=== PATIENT | female | born 1965 | race Caucasian/White ===

== ENCOUNTER 2020-10-13 15:22 | Outpatient (CLI) | payer OTHER, SELFPAY ==
--- NOTE | ~2020-10-13 | XR_ITS ---
XR wrist LT 2V DATE: 10/13/2020 15:43 INDICATION: Radial wrist and first digit pain TECHNIQUE: AP and lateral views COMPARISON: 10/13/2020 left hand FINDINGS: There is widening of the scapholunate joint. There is narrowing and degenerative spurring at the first carpal metacarpal joint consistent with ost eoarthritis. There is a chronic bony ossicle at the lateral aspect of the first carpometacarpal joint . No recent fracture or dislocation. No erosive change is evident. IMPRESSION: Osteophyte is at the first carpometacarpal joint Widening of the scapholunate joint Reviewed, dictated and finalized at location B. 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
--- NOTE | ~2020-10-13 | XR_ITS ---
XR hand LT min 3V DATE: 10/13/2020 15:43 INDICATION: First and fifth metacarpal pain. No injury. TECHNIQUE: 3 views of left hand COMPARISON: None FINDINGS: There is mild widening at the scapholunate joint. There is joint space narrowing and spurri ng at the first carpal metacarpal joint consistent with osteoarthritis. There is a chronic small bony density at the lateral margin of the first carpometacarpal joint. There is mild spurring at the seco nd metacarpal head articular margin consistent with mild osteoarthritis at the second metacarpophalan geal joint. There is narrowing of some of the interphalangeal joints. No fracture or dislocation, periosteal reaction or bone destruction is detected. IMPRESSION: Polyarticular osteoarthritis Widening at the scapholunate joint No fracture or dislocation Reviewed, dictated and finalized at location B. 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
== END 2020-10-13 15:23 | disposition home or self-care (01) ==
LOC: ANHIMG 15:29
PROVIDERS: PCP Nurse Practitioner Family; Visit Provider Nurse Practitioner Family
DX: M19.042 Primary osteoarthritis, left hand (principal); M18.12 Unilateral primary osteoarthritis of first carpometacarpal joint, left hand
CPT/HCPCS: 73100; 73130

== ENCOUNTER 2021-03-22 14:49 | Outpatient (CLI) | payer OTHER, SELFPAY ==
--- NOTE | ~2021-03-22 | MM_ITS ---
EXAMINATION: MM screening [facility] BI w rena HISTORY: Screening mammogram TECHNIQUE: Craniocaudal and mediolateral oblique 3-D tomosynthesis images were obtained and synthetic 2-D images were generated. CAD analysis was submitted and interpreted. COMPARISON: 11/18/2019, 09/03/2018, 08/06/2009 bilateral digital screening mammogram examinations BREAST PARENCHYMAL COMPOSITION: The breasts are almost entirely fatty. FINDINGS: There is no evidence of suspicious mass, calcification, or architectural distortion to sugg est malignancy in either breast. There has been no suspicious interval change. IMPRESSION: 1. No mammographic evidence of malignancy. 2. Recommend routine screening mammography in one year. BI-RADS Category 1: Negative Reviewed, dictated and finalized at location A.
--- NOTE | ~2021-03-22 | DEXA_ITS ---
Bone Density Report Name: Eve Lunsford Age: 55 Sex: Female Ethnicity: White Date of : 1965 Indication: asthma or emphysema; Referring Provider: ADELE, MUNA Study: Bone densitometry was performed. Exam Date: March 22, 2021 Accession number: [id number] Bone Density: Region BMD T-score Z-score Classification AP Spine (L3, L4) 1.209 1.0 2.0 Normal Femoral Neck (Left) 0.631 -2.0 -1.0 Osteopenia Total Hip (Left) 0.759 -1.5 -0.9 Osteopenia Total Hip Bilateral Avg 0.811 -1.1 -0.5 Osteopenia Femoral Neck (Right) 0.759 -0.8 0.1 Normal Total Hip (Right) 0.862 -0.7 -0.1 Normal World Health Organization criteria for BMD impression classify patients as: Normal (T-score at or above -1.0), Osteopenia (T-score between -1.0 and -2.5), or Osteoporosis (T-score at or below -2.5). 10-year Fracture Risk: FRAX not reported because: Premenopausal woman Clinical Information Provided by Patient: Has used the following medications: Vitamin D Has the following medical conditions: Asthma or Emphysema Patient maximum height was 64 Drinks caffeinated beverages Onset of menses at age 12 Premenopausal Number of children 2 Impression: The patient's bone mass is within expected range for age, gender and ethnicity. Discussion: BONE DENSITY IS WITHIN EXPECTED LIMITS FOR AGE, SEX AND RACE. Bone density is within expected limits for age, sex and race at all sites measured. The patient should follow a healthful lifestyle (good nutrition with adequate calcium and vitamin D, and appropriate weight-bearing exercise). Follow-Up: Consider repeating this study in 2 to 3 years to reassess this patient's status, or sooner if there is some new clinical indication. Reported by: EDMUND on 03/22/2021 3:12:00 PM. Reviewed, dictated and finalized at location AEvon LANDIN
== END 2021-03-22 14:50 | disposition home or self-care (01) ==
PROVIDERS: PCP Nurse Practitioner Family; Visit Provider Nurse Practitioner
DX: Z12.31 Encounter for screening mammogram for malignant neoplasm of breast (principal); Z13.820 Encounter for screening for osteoporosis; M85.852 Other specified disorders of bone density and structure, left thigh; M85.851 Other specified disorders of bone density and structure, right thigh
CPT/HCPCS: 77063; 77067; 77080

== ENCOUNTER 2022-06-28 08:00 | Outpatient (CLI) | payer OTHER, SELFPAY ==
--- NOTE | ~2022-06-28 | MM_ITS ---
EXAMINATION: MM screening [facility] BI w rena HISTORY: Screening TECHNIQUE: Craniocaudal and mediolateral oblique 3-D tomosynthesis images were obtained and synthetic 2-D images were generated. CAD analysis was submitted and interpreted. COMPARISON: Comparison to multiple prior studies sequentially, with oldest reviewed study dated 06/2018. BREAST PARENCHYMAL COMPOSITION: There are scattered areas of fibroglandular density. FINDINGS: There is no evidence of suspicious mass, calcification, or architectural distortion to sugg est malignancy in either breast. There has been no suspicious interval change. IMPRESSION: 1. No mammographic evidence of malignancy. 2. Recommend routine screening mammography in one year. BI-RADS Category 1: Negative Reviewed, dictated and finalized at location A.
== END 2022-06-28 08:01 | disposition home or self-care (01) ==
PROVIDERS: PCP Nurse Practitioner Family; Visit Provider Obstetrics & Gynecology Gynecology
DX: Z12.31 Encounter for screening mammogram for malignant neoplasm of breast (principal)
CPT/HCPCS: 77063; 77067

== ENCOUNTER 2022-07-22 15:38 | Emergency (ER) | payer OTHER, SELFPAY ==
[2022-07-22 15:47] VITALS: BP 156/93; PULSE 85; RESP 16; TEMP 36.6; O2SAT 99
--- NOTE | 2022-07-22 16:01 | ED.SKABFB ---
HPI - Skin/Abscess/Foreign Bdy General Chief complaint: Skin/Abscess/Foreign Body Stated complaint: cyst inner breast Time Seen by Provider: 07/22/22 16:02 History of Present Illness HPI narrative: Eve Lunsford is a 56 yo female with no PMH who comes to the area of inflamed tissue under her left breast that she has been tried use hot compresses on and helping it improved for the last week states has been excised once in the past with absolutely came to the services abscess but has not bothered her for 5 years Related Data Home Medications Medication Instructions Recorded Confirmed loratadine 10 mg tablet mg 07/22/22 meloxicam 15 mg tablet mg 07/22/22 Allergies Allergy/AdvReac Type Severity Reaction Status Date / Time No Known Allergies Allergy Unverified 05/28/14 17:25 Review of Systems Review of Systems: CONSTITUTIONAL: Denies fever, chills, sweats. EYES: Denies visual changes, redness, discharge. ENT: Denies rhinorrhea, congestion, sore throat, otalgia. CARDIOVASCULAR: Denies chest pain, palpitations, edema. RESPIRATORY: Denies dyspnea, wheezing, cough GASTROINTESTINAL: Denies abdominal pain, nausea, vomiting, diarrhea. GENITOURINARY: Denies dysuria, hematuria, abnormal discharge SKIN: Swollen area under the left breast NEUROLOGIC: Denies numbness, or focal weakness. PSYCHIATRIC: Denies anxiety or depression. [facility] Past Medical History Medical History (Updated 07/22/22 @ 16:17 by Yoon Guo CNP) Cyst of left breast High blood pressure Social History Social History (Updated 07/22/22 @ 16:12 by Yoon Guo CNP) Smoking packs per day: 1 Smoking cigarettes per day: 20.0 Smoking status: Current every day smoker Alcohol intake: current Comments At time of signature, I agree with nursing past medical, surgical, social and family history. There is no relevant family history pertinent to the presenting complaint. Exam Narrative: GENERAL: This is a well-nourished, well-developed patient, in mild distress. HEAD: normocephalic, atraumatic. EYES: Sclera clear/white. Vision is grossly intact. EARS: External ears normal, . Hearing grossly intact. NOSE: External nose normal without nasal discharge, nares without redness, no rhinorrhea. THROAT: Mucous membranes moist, CARDIOVASCULAR: Regular rate and rhythm without murmurs, gallops, or rubs. RESPIRATORY: Clear to auscultation. Breath sounds equal bilaterally. No wheezes, rales, or rhonchi. GASTROINTESTINAL: Abdomen soft, non-tender, SKIN: warm, intact with swelling under the left breast running laterally that is warm to touch and firm NEURO: awake, alert, and oriented to person, place and time. There were no obvious focal neurologic abnormalities. Steady gait EXTREMITIES: Normal range of motion. BACK: Nontender without deformity Course Course Emergency Course: Patient has i cellulitis under left breast Started on Keflex 875 twice daily to continue using warm soaks Level of Care: Express Care Visit Vital Signs Vital signs: Vital Signs Temperature 97.9 F 07/22/22 15:47 Pulse Rate 85 07/22/22 15:47 Respiratory Rate 16 07/22/22 15:47 Blood Pressure 156/93 H 07/22/22 15:47 Pulse Oximetry 99 07/22/22 15:47 Oxygen Delivery Room Air 07/22/22 15:47 Temperature 97.9 F 07/22/22 15:47 Pulse Rate 85 07/22/22 15:47 Respiratory Rate 16 07/22/22 15:47 Blood Pressure 156/93 H 07/22/22 15:47 Pulse Oximetry 99 07/22/22 15:47 Oxygen Delivery Room Air 07/22/22 15:47 MDM - Skin/Abscess/Foreign Bdy Differential Diagnosis Differential diagnosis: Likely abscess of skin or subcutaneous tissue, cellulitis and other Critical Care Time Critical Care Time Critical Care Time: No Discharge Plan Discharge Clinical Impression: Cellulitis Patient Disposition: Home, Self-Care Condition: Stable Instructions: Antibiotic Form, Cellulitis (ED) Additional Instructions: Take antibiotics as di
== END 2022-07-22 16:23 | disposition home or self-care (01) ==
PROVIDERS: Emergency Provider Nurse Practitioner
DX: N61.0 Mastitis without abscess (principal); F17.210 Nicotine dependence, cigarettes, uncomplicated; I10 Essential (primary) hypertension
CPT/HCPCS: 99213; G0463

== ENCOUNTER 2022-07-27 18:42 | Emergency (ER) | payer OTHER, SELFPAY ==
[2022-07-27 18:46] VITALS: BP 190/99; PULSE 102; RESP 20; TEMP 36.4; O2SAT 97
--- NOTE | 2022-07-27 19:39 | ED.GENADULT ---
HPI - General Adult General Chief complaint: Wound/Laceration Stated complaint: abscess on left breast Time Seen by Provider: 07/27/22 19:34 History of Present Illness HPI narrative: Patient is a 56-year-old female who presents ER with left breast abscess. Started having pain over a week ago. Went to [place] [facility] and was placed on cephalexin. Saw her PCP yesterday and was switched to Bactrim. She has developed an abscess head on it today. No drainage. No fevers or chills or sweats. Had similar symptoms 1 time several years ago related to a cyst in her breast. Patient reports she had a mammogram on 06/28/2022 that came back normal. It is possible this may have irritated the cyst and then it got secondarily infected. Patient's nipple is currently inverted and she reports this is related to the inflammation. Related Data Home Medications Medication Instructions Recorded Confirmed loratadine 10 mg tablet mg 07/22/22 meloxicam 15 mg tablet mg 07/22/22 Allergies Allergy/AdvReac Type Severity Reaction Status Date / Time No Known Allergies Allergy Unverified 05/28/14 17:25 Review of Systems Review of Systems: All systems reviewed & are unremarkable except as noted in HPI and below Constitutional: Constitutional: Denies chills, Denies fatigue and Denies fever(s) Cardiovascular: Cardiovascular: Denies chest pain Respiratory: Respiratory: Denies cough and Denies dyspnea Integumentary/Breasts: Skin/Breast: Reports breast pain and Reports erythema Comments: Abscess left breast PMFSH Past Medical History Medical History (Updated 07/27/22 @ 20:25 by Herson Lorenzana MD) Cyst of left breast High blood pressure Social History Social History (Updated 07/22/22 @ 16:12 by Yoon Guo CNP) Smoking packs per day: 1 Smoking cigarettes per day: 20.0 Smoking status: Current every day smoker Alcohol intake: current Exam Narrative: GENERAL: Well-appearing, well-nourished, and in no acute distress. HEAD: Normocephalic, atraumatic. Breast: Left breast with abscess at the 5 o'clock position by the nipple. Some induration inferiorly and medially. Inverted nipple on left side. Normal right breast. EXTREMITIES: Normal range of motion. No edema. SKIN: Warm, dry, no rash. NEURO: Alert and oriented x3. PSYCH: Normal mood and affect. Course Vital Signs Vital signs: Vital Signs Temperature 97.6 F 07/27/22 18:46 Pulse Rate 102 H 07/27/22 18:46 Respiratory Rate 20 07/27/22 18:46 Blood Pressure 190/99 H 07/27/22 18:46 Pulse Oximetry 97 07/27/22 18:46 Oxygen Delivery Room Air 07/27/22 18:46 Temperature 97.6 F 07/27/22 18:46 Pulse Rate 102 H 07/27/22 18:46 Respiratory Rate 20 07/27/22 18:46 Blood Pressure 190/99 H 07/27/22 18:46 Pulse Oximetry 97 07/27/22 18:46 Oxygen Delivery Room Air 07/27/22 18:46 Procedures Abscess I/D breast: Date of Incision: 07/27/22 Time of Incision: 20:15 Side (if applicable): left Local Anesthetic: lidocaine 1% and with epi Amount of anesthesia used (mL): 3 Technique: incised with #11 blade Irrigation: No Packing used?: plain I&D Results: Pus Medical Decision Making Vital Signs Vital Signs: Vital Signs Temperature 97.6 F 07/27/22 18:46 Pulse Rate 102 H 07/27/22 18:46 Respiratory Rate 20 07/27/22 18:46 Blood Pressure 190/99 H 07/27/22 18:46 Pulse Oximetry 97 07/27/22 18:46 Oxygen Delivery Room Air 07/27/22 18:46 Temperature 97.6 F 07/27/22 18:46 Pulse Rate 102 H 07/27/22 18:46 Respiratory Rate 20 07/27/22 18:46 Blood Pressure 190/99 H 07/27/22 18:46 Pulse Oximetry 97 07/27/22 18:46 Oxygen Delivery Room Air 07/27/22 18:46 Discharge Plan Discharge Clinical Impression: Abscess Patient Disposition: Home, Self-Care Condition: Stable Instructions: Antibiotic Form, Incision and Drainage (ED) Additional
== END 2022-07-27 20:45 | disposition home or self-care (01) ==
LOC: ANHED 20:45
PROVIDERS: Emergency Provider Emergency Medicine; PCP Nurse Practitioner Family
DX: N61.1 Abscess of the breast and nipple (principal); I10 Essential (primary) hypertension; F17.210 Nicotine dependence, cigarettes, uncomplicated
CPT/HCPCS: 10061; 99283

== ENCOUNTER 2022-08-30 16:36 | Outpatient (CLI) | payer OTHER, SELFPAY ==
--- NOTE | ~2022-08-30 | US_ITS ---
EXAMINATION: US breast LT limited HISTORY: Abscess of the breast and nipple TECHNIQUE: Limited left breast ultrasound is performed in the area of clinical concern. FINDINGS: There is a small amount of edema in the breast near the nipple. No suspicious cystic or destini id mass is seen. No abscess is identified. IMPRESSION: Soft tissue edema without discrete abscess identified. BI-RADS Category 2: Benign finding(s). Reviewed, dictated and finalized at location A.
== END 2022-08-30 16:37 | disposition home or self-care (01) ==
LOC: ANHIMG 16:39
PROVIDERS: PCP Nurse Practitioner Family; Visit Provider Surgery
DX: N61.1 Abscess of the breast and nipple (principal)
CPT/HCPCS: 76642

== ENCOUNTER 2022-11-14 16:00 | Emergency (ER) | payer OTHER, SELFPAY ==
[2022-11-14 16:35] VITALS: BP 167/101; PULSE 106; RESP 16; TEMP 37.2; O2SAT 98
--- NOTE | 2022-11-14 17:13 | ED.SKABFB ---
HPI - Skin/Abscess/Foreign Bdy General Chief complaint: Skin/Abscess/Foreign Body Stated complaint: Bottom Lip Swollen Source: patient Mode of arrival: ambulatory Limitations: no limitations History of Present Illness HPI narrative: 57-year-old female presents to [facility] with complaints of pain, erythema and swelling to her lower lip for the past 2 days. Patient reports that she felt that she had a zit coming on so she attempted to pop it using a tweezers. Patient reports that her symptoms have worsened. Patient denies fever, purulent drainage, bleeding, nausea, vomiting or diarrhea. Patient has been applying [id number] ointments with little relief. MD complaint: other (erythema, swelling ) Onset (ago): day(s) (2) Exacerbating factors: none Associated symptoms: denies other symptoms Treatments prior to arrival: none Related Data Home Medications Medication Instructions Recorded Confirmed gabapentin 300 mg capsule 300 mg PO DAILY 11/14/22 11/14/22 Allergies Allergy/AdvReac Type Severity Reaction Status Date / Time No Known Allergies Allergy Verified 11/14/22 16:46 Review of Systems Constitutional: Constitutional: Denies chills, Denies fatigue, Denies fever(s) and Denies weakness ENT: Denies vertigo and Denies dizziness Cardiovascular: Cardiovascular: Denies chest pain Respiratory: Respiratory: Denies cough, Denies dyspnea and Denies wheezing Gastrointestinal: Gastrointestinal: Denies diarrhea, Denies nausea and Denies vomiting Musculoskeletal: Musculoskeletal: Denies arthralgias and Denies joint swelling Integumentary/Breasts: Skin/Breast: Denies pruritus, Reports erythema and Reports rash Comments: Erythema, swelling and warmth to lower lip Allergic/Immunologic: Allergic/Immunologic: Denies lip swelling, Denies throat swelling and Denies tongue swelling [facility] Past Medical History Medical History Cyst of left breast High blood pressure Social History Social History Smoking packs per day: 1 Smoking cigarettes per day: 20.0 Smoking status: Current every day smoker Alcohol intake: current Comments At time of signature, I agree with nursing past medical, surgical, social and family history. There is no relevant family history pertinent to the presenting complaint. Exam Const: General: healthy appearing, no acute distress and alert Nutritional Appearance: well nourished Orientation/consciousness: patient oriented x3 Limitations: no limitations HENMT: Head: normal to inspection Throat: posterior oropharynx normal and uvula midline Eyes: Conjunctivae: conjunctivae normal Neck: Neck: normal visual inspection Resp: Effort & Inspection: normal respiratory effort and not labored Auscultation: clear to auscultation bilaterally, no crackles, no rales, no rhonchi and no wheezes Cardio: Rate: regular rate Rhythm: regular rhythm Heart sounds: Murmur heart sound present Other: patient has known history of murmur Skin: General skin exam: normal color Other: mild erythema, swelling and warmth noted to the lower lip. There is a 1 cm scabbed area noted to lower Lip. There is no fluctuance or induration noted Neuro: General: patient oriented x3 Speech: normal speech Gait exam (Neuro): Normal gait present Psych: Affect: normal affect Attitude: cooperative Course Course Level of Care: Express Care Visit Vital Signs Vital signs: Vital Signs Temperature 37.2 C 11/14/22 16:35 Pulse Rate 106 H 11/14/22 16:35 Respiratory Rate 16 11/14/22 16:35 Blood Pressure 167/101 H 11/14/22 16:35 Pulse Oximetry 98 11/14/22 16:35 Oxygen Delivery Room Air 11/14/22 16:35 Temperature 37.2 C 11/14/22 16:35 Pulse Rate 106 H 11/14/22 16:35 Respiratory Rate 16 11/14/22 16:35 Blood Pressure 167/101 H 11/14/22 16:35 Pulse Oximetry 98 11/14/22
[2022-11-14 17:23] VITALS: BP 138/82
== END 2022-11-14 17:23 | disposition home or self-care (01) ==
PROVIDERS: Emergency Provider Nurse Practitioner Family; PCP Nurse Practitioner Family
DX: K13.0 Diseases of lips (principal); R03.0 Elevated blood-pressure reading, without diagnosis of hypertension
CPT/HCPCS: 99213; G0463

== ENCOUNTER 2023-07-03 08:03 | Emergency (ER) | payer OTHER, SELFPAY ==
[2023-07-03 08:13] VITALS: BP 127/80; PULSE 91; RESP 16; TEMP 37.1; O2SAT 100
[2023-07-03 08:15] VITALS: BP 127/80; PULSE 91; RESP 16; TEMP 37.1; O2SAT 100
--- NOTE | 2023-07-03 08:18 | ED.SKABFB ---
HPI - Skin/Abscess/Foreign Bdy General Chief complaint: Skin/Abscess/Foreign Body Stated complaint: Right Armpit Pain Time Seen by Provider: 07/03/23 08:24 Source: patient and RN notes reviewed Mode of arrival: ambulatory Limitations: dementia History of Present Illness HPI narrative: 57-year-old female presents with concern for redness, drainage under her right arm. She reports on Monday she began feeling poorly, she had fever, body aches, fatigue. She reports she noticed the redness and swelling increasing under her armpit over the weekend, it started draining yesterday. She reports she last had a fever yesterday morning. She reports the area remains red and slightly tender. MD complaint: other (Redness) Related Data Home Medications Medication Instructions Recorded Confirmed gabapentin 300 mg capsule 300 mg PO DAILY 11/14/22 07/03/23 hydrochlorothiazide 25 mg tablet 25 mg PO DAILY 07/03/23 07/03/23 meloxicam 15 mg tablet 15 mg PO DAILY 07/03/23 07/03/23 Allergies Allergy/AdvReac Type Severity Reaction Status Date / Time No Known Allergies Allergy Verified 07/03/23 08:13 Review of Systems Review of Systems: CONSTITUTIONAL: Denies malaise, chills, sweats, or fever. EYES: Denies redness, or discharge. ENT: Denies rhinorrhea, congestion, swollen lips, swollen tongue CARDIOVASCULAR: Denies chest pain, palpitations, or edema. RESPIRATORY: Denies cough or dyspnea. GASTROINTESTINAL: Denies abdominal pain, nausea, vomiting SKIN: Reports redness, swelling, drainage under her right arm. Denies vesicles, bullae, numbness, pain beyond proportion MUSCULOSKELETAL: Denies joint pain or myalgia. NEUROLOGIC: Denies headache. All systems reviewed & are unremarkable except as noted in HPI and below PMFSH Past Medical History Medical History Cyst of left breast High blood pressure Social History Social History Smoking packs per day: 1 Smoking cigarettes per day: 20.0 Smoking status: Current every day smoker Alcohol intake: current Comments At time of signature, agree with nursing past medical, surgical, social and family history. There is no relevant family history pertinent to the presenting complaint Exam Narrative: GENERAL: Well-appearing, well-nourished, and in no acute distress. HEAD: Normocephalic, atraumatic. EYES: PERRLA, conjunctivae clear ENT: Mucous membranes moist. NECK: Supple. No lymphadenopathy CHEST: Clear to auscultation. No respiratory distress. HEART: Regular rate and rhythm. SKIN: Warm, dry. Erythema, induration, tenderness, warmth without fluctuation with sharp margins approximately 8 cm x 10 cm noted in the right axilla with small scabbed area noted. No vesicles, bullae, necrosis, ecchymosis, crepitus noted. NEURO: Alert and oriented x3. PSYCH: Normal mood and affect Course Course Emergency Course: Patient is aware of diagnosis, understands and agrees to treatment plan. Anticipatory guidance given. Patient agrees to follow-up as directed and is aware of reasons to seek care at the emergency department. Portions of this record may have been created with voice recognition software Level of Care: Express Care Visit Vital Signs Vital signs: Vital Signs Temperature 98.8 F 07/03/23 08:13 Pulse Rate 91 07/03/23 08:13 Respiratory Rate 16 07/03/23 08:13 Blood Pressure 127/80 07/03/23 08:13 Pulse Oximetry 100 07/03/23 08:13 Oxygen Delivery Room Air 07/03/23 08:13 Temperature 98.8 F 07/03/23 08:15 Pulse Rate 91 07/03/23 08:15 Respiratory Rate 16 07/03/23 08:15 Blood Pressure 127/80 07/03/23 08:15 Pulse Oximetry 100 07/03/23 08:15 Oxygen Delivery Room Air 07/03/23 08:15 Reviewed. MDM - Skin/Abscess/Foreign Bdy MDM Narrative Medical decision making narrative: Does not appear at this time to be erythema multiforme, bull
== END 2023-07-03 08:43 | disposition home or self-care (01) ==
PROVIDERS: Emergency Provider Nurse Practitioner; PCP Nurse Practitioner Family
DX: L03.111 Cellulitis of right axilla (principal); L02.411 Cutaneous abscess of right axilla; I10 Essential (primary) hypertension; F17.210 Nicotine dependence, cigarettes, uncomplicated
CPT/HCPCS: 99213; G0463

== ENCOUNTER 2023-11-03 15:41 | Emergency (ER) | payer OTHER, SELFPAY ==
[2023-11-03 15:48] VITALS: BP 152/109; PULSE 96; RESP 18; TEMP 35.8; O2SAT 97
--- NOTE | 2023-11-03 16:11 | ED.WOUNDLAC ---
HPI - Wound/Laceration General Chief Complaint: Wound/Laceration Stated Complaint: Wound on Abdomen Time Seen by Provider: 11/03/23 16:05 Source: patient and RN notes reviewed Mode of arrival: ambulatory Limitations: no limitations History of Present Illness HPI narrative: Patient presents today complaining of a wound to her right lower abdomen with surrounding redness. States she was initially scratched by a dog 10-14 days ago over her clothing that caused an open wound. A few days later it started to become red with some drainage and has slowly progressed since that time. She had scrub the area with a pumice stone and had been cleaning with witch Tia. Denies any current pain. Related Data Home Medications Medication Instructions Recorded Confirmed hydrochlorothiazide 25 mg tablet 25 mg PO DAILY 07/03/23 11/03/23 meloxicam 15 mg tablet 15 mg PO DAILY 07/03/23 11/03/23 cholecalciferol (vitamin D3) 1,250 1,250 mcg PO WEEKLY 11/03/23 11/03/23 mcg (50,000 unit) tablet loratadine 10 mg tablet mg 11/03/23 Allergies Allergy/AdvReac Type Severity Reaction Status Date / Time No Known Allergies Allergy Verified 11/03/23 15:50 Review of Systems Review of Systems: CONSTITUTIONAL: Denies body aches, fever, chills, or sweats. EYES: Denies visual changes, redness, or discharge. ENT: Denies rhinorrhea, congestion, sore throat, or otalgia. CARDIOVASCULAR: Denies chest pain, palpitations, or edema. RESPIRATORY: Denies cough or dyspnea. GASTROINTESTINAL: Denies abdominal pain, nausea, vomiting, or diarrhea. GENITOURINARY: Denies dysuria or hematuria. SKIN: + wound to right lower abdomen MUSCULOSKELETAL: Denies back pain, joint pain, or myalgia. NEUROLOGIC: Denies headache, numbness, tingling, or weakness. PSYCH: Denies depression or anxiety. [facility] Past Medical History Medical History Cyst of left breast High blood pressure Social History Social History Smoking packs per day: 1 Smoking cigarettes per day: 20.0 Smoking status: Current every day smoker Alcohol intake: current Comments At time of signature, I have reviewed and agree with nursing past medical, surgical, social and family history unless otherwise noted. Please see nursing chart for further information. There is no relevant family history pertinent to the presenting complaint Exam Narrative: GENERAL: Well-appearing, well-nourished, and in no acute distress. HEAD: Normocephalic, atraumatic. EYES: EOMI. No redness or drainage. Conjunctivae normal. ENT: Mucous membranes pink and moist. NECK: Normal AROM. CHEST: No respiratory distress. MUSCULOSKELETAL: No bony tenderness. EXTREMITIES: Normal range of motion. No edema. SKIN: Warm, dry, no rash. Capillary refill normal. Normal skin turgor. Superficial open wound with an erythematous base measuring approximately 3 x 4 cm with some scant purulent discharge, surrounded in erythema measuring 11 x 21 cm. No induration. NEURO: No focal deficits. Alert and oriented x3. Gait steady. PSYCH: Normal affect. No signs of depression or anxiety. Course Course Level of Care: Express Care Visit Vital Signs Vital signs: Vital Signs Temperature 96.5 F L 11/03/23 15:48 Pulse Rate 96 11/03/23 15:48 Respiratory Rate 18 11/03/23 15:48 Blood Pressure 152/109 H 11/03/23 15:48 Pulse Oximetry 97 11/03/23 15:48 Oxygen Delivery Room Air 11/03/23 15:48 Temperature 96.5 F L 11/03/23 15:48 Pulse Rate 96 11/03/23 15:48 Respiratory Rate 18 11/03/23 15:48 Blood Pressure 152/109 H 11/03/23 15:48 Pulse Oximetry 97 11/03/23 15:48 Oxygen Delivery Room Air 11/03/23 15:48 Reviewed MDM - Wound/Laceration MDM Narrative Medical decision making narrative: Patient will be treated with a course of Bactrim for her cellulitis. She has been instruc
[2023-11-03 16:15] VITALS: BP 117/80; PULSE 86
== END 2023-11-03 16:21 | disposition home or self-care (01) ==
PROVIDERS: Emergency Provider Nurse Practitioner; PCP Nurse Practitioner Family
DX: L03.311 Cellulitis of abdominal wall (principal); F17.210 Nicotine dependence, cigarettes, uncomplicated; Z79.899 Other long term (current) drug therapy
CPT/HCPCS: 99213; G0463

== ENCOUNTER 2023-12-16 08:43 | Outpatient (CLI) | payer OTHER, SELFPAY ==
--- NOTE | ~2023-12-16 | DEXA_ITS ---
Bone Density Report Name: LINN KEE Age: 58 Sex: Female Ethnicity: White Date of : 1965 Indication: osteopenia; height loss;postmenopausal Referring Provider: FERNANDO BOWLING Study: Bone densitometry was performed. Exam Date: December 16, 2023 Accession number: [id number] Bone Density: Region BMD T-score Z-score Classification AP Spine(L2, L3, L4) 1.187 1.0 2.1 Normal Femoral Neck (Left) 0.737 -1.0 0.1 Normal Total Hip (Left) 0.798 -1.2 -0.4 Osteopenia Femoral Neck (Right) 0.710 -1.3 -0.1 Osteopenia Total Hip (Right) 0.777 -1.4 -0.6 Osteopenia Total Hip Mean 0.788 -1.3 -0.5 Osteopenia World Health Organization criteria for BMD impression classify patients as: Normal (T-score at or above -1.0), Osteopenia (T-score between -1.0 and -2.5), or Osteoporosis (T-score at or below -2.5). 10-year Fracture Risk(1): Major Osteoporotic Fracture 5.4% Hip Fracture 0.5% Reported Risk Factors: [place] (), Neck BMD=0.710, BMI=44.3, smoking (1) FRAX(R) Version 3.08. Fracture probability calculated for an untreated patient. Fracture probability may be lower if the patient has received treatment. Previous Exams: Region Exam Age BMD T-score BMD Change BMD Change Date g/cm2 vs Baseline vs Previous Total Hip(Left) 12/16/2023 58 0.798 -1.2 0.040 (5.2%)# 0.040 (5.2%)# 03/22/2021 55 0.759 -1.5 Total Hip(Right) 12/16/2023 58 0.777 -1.4 -0.085 (-9.8%) -0.085 (-9.8%) 03/22/2021 55 0.862 -0.7 *Denotes significance at 95% confidence level, LSC for Total Hip = 0.027 g/cm2 # Denotes dissimilar scan types or analysis methods Clinical Information Provided by Patient: Smokes Has used the following medications: Vitamin D Patient maximum height was 64.5 Drinks caffeinated beverages Onset of menses at age 12 Number of children 2 Impression: The patient has low bone mass, based on the Right Total Hip T-score. The patient has an estimated ten-year risk of hip fracture of 0.5% and an estimated ten-year risk of major fracture of 5.4%, based on the WHO FRAX algorithm. The patient has risk factors, including: smoking. No significant bone loss was observed. Discussion: BONE DENSITY IS LOW AT ONE OR MORE SKELETAL SITES. This patient's lowest T-score is low at one or more skeletal sites. It meets the World Health Organization's (WHO) criteria for ?low bone mass? (T-score between -1.0 and -2.5). The patient's 10-year risk of fracture as calculated by FRAX is les
--- NOTE | ~2023-12-16 | MM_ITS ---
EXAMINATION: MM screening josselyn BI w rena HISTORY: Screening mammogram TECHNIQUE: Craniocaudal and mediolateral oblique 3-D tomosynthesis images were obtained and synthetic 2-D images were generated. CAD analysis was submitted and interpreted. COMPARISON: 08/2022 Limited left breast ultrasound 06/28/2022, 03/22/2021 and 11/18/2019 bilateral screening mammogram examinations BREAST PARENCHYMAL COMPOSITION: The breasts are almost entirely fatty. FINDINGS: Stable circumscribed approximately 8.5 mm opacity in the posterior outer mid to lower right breast since 06/28/2022 and 11/18/2019. There is no evidence of suspicious mass, calcification, or arc hitectural distortion to suggest malignancy in either breast. There has been no suspicious interval c hange. IMPRESSION: 1. Benign finding. No mammographic evidence of malignancy. 2. Recommend routine screening mammography in one year. BI-RADS Category 2: Benign finding(s). Reviewed, dictated and finalized at location A. [employer]
== END 2023-12-16 08:44 | disposition home or self-care (01) ==
LOC: ANHIMG 08:45
PROVIDERS: PCP Nurse Practitioner Family; Visit Provider Obstetrics & Gynecology Gynecology
DX: Z12.31 Encounter for screening mammogram for malignant neoplasm of breast (principal); M85.80 Other specified disorders of bone density and structure, unspecified site; Z78.0 Asymptomatic menopausal state
CPT/HCPCS: 77063; 77067; 77080

== ENCOUNTER 2024-02-24 15:59 | Emergency (ER) | payer OTHER, SELFPAY ==
[2024-02-24 16:15] VITALS: BP 147/107; PULSE 92; RESP 18; TEMP 36.2; O2SAT 97
--- NOTE | 2024-02-24 16:22 | ED.WOUNDLAC ---
HPI - Wound/Laceration General Chief Complaint: Wound/Laceration Stated Complaint: Right Leg Wound Source: patient Mode of arrival: ambulatory Limitations: no limitations History of Present Illness HPI narrative: 58-year-old female presented for complaint of right leg laceration sustained today. She states she tripped in her yard and may have cut the leg on a vine. Noticed blood down the leg. Applied a paper towel to the site to stop the bleeding. Tetanus updated 2021. Denies significant pain, numbness, tingling or weakness. Related Data Home Medications Medication Instructions Recorded Confirmed hydrochlorothiazide 25 mg tablet 25 mg PO DAILY 07/03/23 02/24/24 meloxicam 15 mg tablet 15 mg PO DAILY 07/03/23 02/24/24 cholecalciferol (vitamin D3) 1,250 1,250 mcg PO WEEKLY 11/03/23 02/24/24 mcg (50,000 unit) tablet loratadine 10 mg tablet 10 mg PO DAILY 11/03/23 02/24/24 acetaminophen 325 mg capsule 325 mg PO Q6H 01/04/24 02/24/24 (Tylenol) bupropion HCl 150 mg tablet,12 hr 150 mg PO DAILY 02/24/24 02/24/24 sustained-release Allergies Allergy/AdvReac Type Severity Reaction Status Date / Time No Known Allergies Allergy Verified 02/24/24 16:01 Review of Systems Review of Systems: CONSTITUTIONAL: Denies body aches, fever, chills, or sweats. EYES: Denies visual changes, redness, or discharge. ENT: Denies rhinorrhea, congestion CARDIOVASCULAR: Denies chest pain, palpitations, or edema. RESPIRATORY: Denies cough or dyspnea. GASTROINTESTINAL: Denies abdominal pain, nausea, vomiting, or diarrhea. SKIN: reports right leg laceration MUSCULOSKELETAL: Denies back pain, joint pain, or myalgia. NEUROLOGIC: Denies headache, numbness, tingling, or weakness. [facility] Past Medical History Medical History Cyst of left breast High blood pressure Surgical History Surgical History History of kidney surgery History of surgery on arm Social History Social History Smoking packs per day: 1 Smoking cigarettes per day: 20.0 Smoking status: Current every day smoker Alcohol intake: current Comments At time of signature, I have reviewed and agree with nursing past medical, surgical, social and family history unless otherwise noted. Please see nursing chart for further information. There is no relevant family history pertinent to the presenting complaint Exam Narrative: GENERAL: Well-appearing HEAD: Normocephalic, atraumatic. EYES: conjunctivae clear, and EOMI. ENT: Mucous membranes moist. Oropharynx without edema, erythema or lesions. NECK: Supple. No lymphadenopathy CHEST: Clear to auscultation. HEART: Regular rate and rhythm. SKIN: Warm, dry. Right lower leg lac 6.5 cm length, approx 4cm gaping; clean, linear. No active bleeding. NEURO: Alert and oriented x3. Course Course Emergency Course: Patient is aware of diagnosis, understands and agrees to treatment plan. Anticipatory guidance given. Patient agrees to follow-up as directed and is aware of reasons to seek care at the emergency department. Portions of this record may have been created with voice recognition software Level of Care: Express Care Visit Vital Signs Vital signs: Vital Signs Temperature 97.2 F L 02/24/24 16:15 Pulse Rate 92 02/24/24 16:15 Respiratory Rate 18 02/24/24 16:15 Blood Pressure 147/107 H 02/24/24 16:15 Pulse Oximetry 97 02/24/24 16:15 Oxygen Delivery Room Air 02/24/24 16:15 Temperature 97.2 F L 02/24/24 16:15 Pulse Rate 92 02/24/24 16:15 Respiratory Rate 18 02/24/24 16:15 Blood Pressure 147/107 H 02/24/24 16:15 Pulse Oximetry 97 02/24/24 16:15 Oxygen Delivery Room Air 02/24/24 16:15 Reviewed Procedures Laceration right leg: Date: 02/24/24 Size (cm): 6.5 Description: line
== END 2024-02-24 17:05 | disposition home or self-care (01) ==
PROVIDERS: Emergency Provider Nurse Practitioner Family; PCP Nurse Practitioner Family
DX: S81.811A Laceration without foreign body, right lower leg, initial encounter (principal); W01.0XXA Fall on same level from slipping, tripping and stumbling without subsequent striking against object, initial encounter; I10 Essential (primary) hypertension; F17.210 Nicotine dependence, cigarettes, uncomplicated
CPT/HCPCS: 12002; 99213; G0463

== ENCOUNTER 2024-05-17 18:52 | Emergency (ER) | payer OTHER, SELFPAY ==
[2024-05-17 18:59] VITALS: BP 121/84; PULSE 85; RESP 16; TEMP 36.8; O2SAT 98
--- NOTE | 2024-05-17 19:17 | ED.EXTPRO ---
HPI - Extremity Problem General Chief complaint: Extremity Problem,Nontraumatic Stated complaint: Hand Irritation/Sore Time Seen by Provider: 05/17/24 19:17 Source: patient and RN notes reviewed Mode of arrival: ambulatory Limitations: no limitations History of Present Illness HPI Narrative: 58-year-old female presents concern for red raised tender area on left wrist. Reports that started off with a small itchy bumps and then became red, swollen, tender. She tried to drain it today without success. She denies fever, chills,. MD Complaint: extremity swelling Related Data Home Medications Medication Instructions Recorded Confirmed hydrochlorothiazide 25 mg tablet 25 mg PO DAILY 07/03/23 05/17/24 meloxicam 15 mg tablet 15 mg PO DAILY 07/03/23 05/17/24 cholecalciferol (vitamin D3) 1,250 1,250 mcg PO WEEKLY 11/03/23 05/17/24 mcg (50,000 unit) tablet loratadine 10 mg tablet 10 mg PO DAILY 11/03/23 05/17/24 bupropion HCl 150 mg tablet,12 hr 150 mg PO DAILY 02/24/24 05/17/24 sustained-release Allergies Allergy/AdvReac Type Severity Reaction Status Date / Time No Known Allergies Allergy Verified 05/17/24 18:53 Review of Systems Review of Systems: CONSTITUTIONAL: Denies malaise, chills, sweats, or fever. CARDIOVASCULAR: Denies chest pain, palpitations, or edema. RESPIRATORY: Denies cough or dyspnea. SKIN: Reports raised red, swollen, tender area to the left wrist with initial itching MUSCULOSKELETAL: Denies muscle skeletal pain NEUROLOGIC: Denies numbness, weakness All systems reviewed & are unremarkable except as noted in HPI and below PMFSH Past Medical History Medical History Cyst of left breast High blood pressure Surgical History Surgical History History of kidney surgery History of surgery on arm Social History Social History Smoking packs per day: 1 Smoking cigarettes per day: 20.0 Smoking status: Current every day smoker Alcohol intake: current Comments At time of signature, agree with nursing past medical, surgical, social and family history. There is no relevant family history pertinent to the presenting complaint Exam Narrative: GENERAL: Well-appearing, well-nourished, and in no acute distress. HEAD: Normocephalic, atraumatic. EYES: PERRLA, conjunctivae clear, and EOMI. ENT: Mucous membranes moist. NECK: Supple. No lymphadenopathy CHEST: Clear to auscultation. No respiratory distress. HEART: Regular rate and rhythm. SKIN: Warm, dry. 1 cm erythematous red papule noted to the left lateral wrist surrounded by approximately 4 cm of erythema, edema with mild induration. No fluctuation or drainage noted NEURO: Alert and oriented x3. PSYCH: Normal mood and affect Course Course Emergency Course: Patient is aware of diagnosis, understands and agrees to treatment plan. Anticipatory guidance given. Patient agrees to follow-up as directed and is aware of reasons to seek care at the emergency department. Portions of this record may have been created with voice recognition software Level of Care: Express Care Visit Vital Signs Vital signs: Vital Signs Temperature 98.2 F 05/17/24 18:59 Pulse Rate 85 05/17/24 18:59 Respiratory Rate 16 05/17/24 18:59 Blood Pressure 121/84 05/17/24 18:59 Pulse Oximetry 98 05/17/24 18:59 Oxygen Delivery Room Air 05/17/24 18:59 Temperature 98.2 F 05/17/24 18:59 Pulse Rate 85 05/17/24 18:59 Respiratory Rate 16 05/17/24 18:59 Blood Pressure 121/84 05/17/24 18:59 Pulse Oximetry 98 05/17/24 18:59 Oxygen Delivery Room Air 05/17/24 18:59 Reviewed. MDM - Extremity (Nontraumatic) Differential Diagnosis Differential diagnosis: Likely gout, cellulitis and other (Injury, sprain, allergic reaction) Critical Care Time Critical Care Time Fitz
== END 2024-05-17 19:30 | disposition home or self-care (01) ==
PROVIDERS: Emergency Provider Nurse Practitioner
DX: S60.862A Insect bite (nonvenomous) of left wrist, initial encounter (principal); L08.9 Local infection of the skin and subcutaneous tissue, unspecified; W57.XXXA Bitten or stung by nonvenomous insect and other nonvenomous arthropods, initial encounter; F17.210 Nicotine dependence, cigarettes, uncomplicated; I10 Essential (primary) hypertension
CPT/HCPCS: 99213; G0463

== ENCOUNTER 2024-05-20 13:24 | Emergency (ER) | payer OTHER, SELFPAY ==
[2024-05-20 13:37] VITALS: BP 120/60; PULSE 87; RESP 16; TEMP 36.6; O2SAT 95
--- NOTE | 2024-05-20 13:57 | ED.SKABFB ---
HPI - Skin/Abscess/Foreign Bdy General Chief complaint: Skin/Abscess/Foreign Body Stated complaint: Left Wrist Sore/Irritation Time Seen by Provider: 05/20/24 13:50 Source: patient, RN notes reviewed and old records reviewed Mode of arrival: ambulatory Limitations: no limitations History of Present Illness HPI narrative: Patient presents today complaining of redness and swelling to the left wrist x1 week. Symptoms have been worsening x3 days. She was initially seen at [facility] 3 days ago and was placed on Pen-VK for her symptoms. States some of the redness has slightly improved, but the swelling has turned into an abscess. She had a video visit with her PCP this morning who told her to come to [facility] to have the area lanced. She does report some occasional drainage. Related Data Home Medications Medication Instructions Recorded Confirmed hydrochlorothiazide 25 mg tablet 25 mg PO DAILY 07/03/23 05/20/24 meloxicam 15 mg tablet 15 mg PO DAILY 07/03/23 05/20/24 cholecalciferol (vitamin D3) 1,250 1,250 mcg PO WEEKLY 11/03/23 05/20/24 mcg (50,000 unit) tablet loratadine 10 mg tablet 10 mg PO DAILY 11/03/23 05/20/24 bupropion HCl 150 mg tablet,12 hr 150 mg PO DAILY 02/24/24 05/20/24 sustained-release Allergies Allergy/AdvReac Type Severity Reaction Status Date / Time No Known Allergies Allergy Verified 05/20/24 13:32 Review of Systems Review of Systems: CONSTITUTIONAL: Denies body aches, fever, chills, or sweats. EYES: Denies visual changes, redness, or discharge. ENT: Denies rhinorrhea, congestion, sore throat, or otalgia. CARDIOVASCULAR: Denies chest pain, palpitations, or edema. RESPIRATORY: Denies cough or dyspnea. GASTROINTESTINAL: Denies abdominal pain, nausea, vomiting, or diarrhea. GENITOURINARY: Denies dysuria or hematuria. SKIN: Denies rash, itching. + wrist redness and swelling MUSCULOSKELETAL: Denies back pain, joint pain, or myalgia. NEUROLOGIC: Denies headache, numbness, tingling, or weakness. PSYCH: Denies depression or anxiety. [facility] Past Medical History Medical History Cyst of left breast High blood pressure Surgical History Surgical History History of kidney surgery History of surgery on arm Social History Social History Smoking packs per day: 1 Smoking cigarettes per day: 20.0 Smoking status: Current every day smoker Alcohol intake: current Comments At time of signature, I have reviewed and agree with nursing past medical, surgical, social and family history unless otherwise noted. Please see nursing chart for further information. There is no relevant family history pertinent to the presenting complaint Exam Narrative: GENERAL: Well-appearing, well-nourished, and in no acute distress. HEAD: Normocephalic, atraumatic. EYES: EOMI. No redness or drainage. Conjunctivae normal. ENT: Mucous membranes pink and moist. NECK: Normal AROM. CHEST: No respiratory distress. EXTREMITIES: Normal range of motion. No edema. SKIN: Warm, dry, no rash. Capillary refill normal. Normal skin turgor. 1 cm round fluctuant lesion to the distal ulna with surrounding erythema and induration. Scant amount of clear yellow drainage noted. Mildly tender to palpation. Distal sensation intact. Capillary refill normal. Full range of motion of the wrist NEURO: No focal deficits. Alert and oriented x3. Gait steady. PSYCH: Normal affect. No signs of depression or anxiety. Course Course Level of Care: Express Care Visit Vital Signs Vital signs: Vital Signs Temperature 97.8 F 05/20/24 13:37 Pulse Rate 87 05/20/24 13:37 Respiratory Rate 16 05/20/24 13:37 Blood Pressure 120/60 05/20/24 13:37 Pulse Oximetry 95 05/20/24 13:37 Oxygen Delivery Room Air 05/20/24 13:37 Temper
== END 2024-05-20 14:20 | disposition home or self-care (01) ==
PROVIDERS: Emergency Provider Nurse Practitioner
DX: L02.414 Cutaneous abscess of left upper limb (principal); F17.210 Nicotine dependence, cigarettes, uncomplicated; I10 Essential (primary) hypertension
CPT/HCPCS: 10060; 99213; G0463

== ENCOUNTER 2024-05-24 18:24 | Inpatient (IN) | payer OTHER, SELFPAY ==
--- NOTE | ~2024-05-24 | XR_ITS ---
XR wrist LT min 3V Ordering provider: Alicia Ferris PA-C History: . edema, erythema, wound . Comparison: October 13, 2020 FINDINGS: BONES: No acute fracture or dislocation. No definite scaphoid fracture. JOINT SPACES: Osteoarthritic changes of the first carpometacarpal joint. Widening of the distance bet ween the scaphoid and lunate suggestive of subluxation. SOFT TISSUES: Normal. IMPRESSION: No acute osseous abnormality left wrist. Reviewed, dictated and finalized at location A.
[2024-05-24 18:27] VITALS: BP 138/92; PULSE 87; RESP 16; TEMP 36.4; O2SAT 97
--- NOTE | 2024-05-24 20:05 | ED.SKABFB ---
HPI - Skin/Abscess/Foreign Bdy General Chief complaint: Skin/Abscess/Foreign Body <Alicia Ferris PA-C - Last Filed: 05/25/24 02:25> Stated complaint: spider bite <FRANCISCO Rodriguez Last Filed: 05/25/24 02:25> Time Seen by Provider: 05/24/24 19:39 <FRANCISCO Rodriguez Last Filed: 05/25/24 02:25> Source: patient <FRANCISCO Rodriguez Last Filed: 05/25/24 02:25> Mode of arrival: ambulatory <FRANCISCO Rodriguez Last Filed: 05/25/24 02:25> Limitations: no limitations <Alicia Ferris PA-C - Last Filed: 05/25/24 02:25> History of Present Illness HPI narrative: This is a 58-year-old female that presents to the emergency department for left wrist swelling and redness. Reports she believes she sustained a bug bite. She has been struggling with this over the last week. She was started on Bactrim 3 days ago without relief. She also had Doxycycline added on yesterday. She was instructed she should go see wound care, but was unable to get in to see them until several weeks from now which prompted her to be seen. Reports drainage from the area. Denies fevers. <Alicia Ferris PA-C - Last Filed: 05/25/24 02:25> Related Data Home medications: Home Medications Medication Instructions Recorded Confirmed hydrochlorothiazide 25 mg tablet 25 mg PO DAILY 07/03/23 05/24/24 meloxicam 15 mg tablet 15 mg PO DAILY 07/03/23 05/24/24 cholecalciferol (vitamin D3) 1,250 1,250 mcg PO WEEKLY 11/03/23 05/24/24 mcg (50,000 unit) tablet loratadine 10 mg tablet 10 mg PO PRN PRN allergies 11/03/23 05/24/24 doxycycline hyclate 100 mg capsule 100 mg PO BID 05/24/24 05/24/24 gabapentin 300 mg capsule 300 mg PO PRN PRN nerve pain 05/24/24 05/24/24 tramadol 50 mg tablet 50 mg PO BID PRN Pain (Scale Score 05/24/24 05/24/24 4-6) <Alicia Ferris PA-C - Last Filed: 05/25/24 02:25> Allergies/Adverse reactions: Allergies Allergy/AdvReac Type Severity Reaction Status Date / Time No Known Allergies Allergy Verified 05/24/24 18:32 <Alicia Ferris PA-C - Last Filed: 05/25/24 02:25> Review of Systems Review of Systems: CONSTITUTIONAL: Denies fever SKIN: Reports erythema and edema MUSCULOSKELETAL: Denies joint pain, or myalgia. <Alicia Ferris PA-C - Last Filed: 05/25/24 02:25> All systems reviewed & are unremarkable except as noted in HPI and below <Alicia Ferris PA-C - Last Filed: 05/25/24 02:25> [facility] Past Medical History Medical History: Medical History Cyst of left breast High blood pressure <Alicia Ferris PA-C - Last Filed: 05/25/24 02:25> Surgical History Surgical History: Surgical History History of kidney surgery History of surgery on arm <Alicia Ferris PA-C - Last Filed: 05/25/24 02:25> Family History Family History: Family History (Updated 05/24/24 @ 22:36 by Kimberly Gonsalez RN) Mother Dementia Hypertension Father Brain cancer <Alicia Ferris PA-C - Last Filed: 05/25/24 02:25> Social History Social History: Social History Smoking packs per day: 1 Smoking cigarettes per day: 20.0 Smoking status: Current every day smoker Tobacco type: e-cigarettes/vaping Alcohol intake: never Substance use: never Substance use type: does not use Do You Feel Safe in your Home?: Yes Lack of Transportation: No Lack of Food: Never True Current Housing: I Have Housing Concerned About Future Housing: No Difficulty Paying Gas/Electric Bills: No Difficulty Paying for Meds: No Currently Unemployed: No Education: High School Diploma/GED Difficulty w/ Childcare or Family Care: No Spiritual care concerns: No <Alicia Ferris PA-C - Last Filed: 05/25/24 02:25> Exam Narrative: GENERAL: Well-appearing, well-nou
[2024-05-24 20:22] LABS: Basophils Percent Auto 0.4 % (0.2-1.2); Eosinophils Absolute Auto 0.5 K/mm3 (0-0.3); Eosinophils Percent Auto 5.5 % (0-4.4); Hematocrit 44.6 % (37.0-47.0); Hemoglobin 14.7 g/dL (12.0-15.0); Immature Granulocyte Absolute 0.03 K/mm3 (0.00-0.031); Immature Granulocyte Percent A 0.3 % (0-0.5); Lymphocytes Absolute Auto 2.71 K/mm3 (0.9-3.2); Lymphocytes Percent Auto 29.3 % (18.3-44.2); Mean Corpuscular Hemoglobin 31.1 pg (26-34); Mean Corpuscular Volume 94.5 fl (80-100); Mean Platelet Volume 9.9 fl (7.4-10.4); Monocytes Absolute Auto 0.6 K/mm3 (0.1-0.6); Monocytes Percent Auto 6.4 % (2.6-8.5); Neutrophils Absolute Auto 5.4 K/mm3 (1.3-6.7); Neutrophils Percent Auto 58.1 % (45.5-73.1); Platelet Count Result 253 k/mm3 (150-375); Red Blood Count 4.72 M/mm3 (4.2-5.4); Red Cell Distribution Width 12.8 % (11.5-14.5); White Blood Count 9.2 K/mm3 (4.5-10.0)
[2024-05-24 20:30] LABS: Lactic Acid Reflex 0.7 mmol/L (0.7-2.0)
[2024-05-24 20:34] LABS: Anion Gap 10 mmol/L (4-12); Blood Urea Nitrogen 24 mg/dL (7-17); Calcium 9.7 mg/dL (8.4-10.2); Carbon Dioxide 25 mmol/L (22-30); Chloride 105 mmol/L (98-107); Estimated CRCL calculation 85 ml/min; Estimated Glomerular Filt Rate > 60; Glucose 106 mg/dL (65-110); Potassium 3.8 mmol/L (3.4-5.0); Sodium 140 mmol/L (137-145)
[2024-05-24 20:46] LABS: Erythrocyte Sedimentation Rate 18 mm/hr (0-20)
--- NOTE | 2024-05-24 21:12 | PM.IMHP ---
H&P: HPI History of Present Illness Date/Time: 05/24/24 21:12 Chief Complaint: L hand cellulitis Narrative: This is a 58-year-old female with past medical history significant for tobacco dependence, hypertension, obesity. patient presents to the emergency room with left wrist warmth ,fluctuance, tenderness, redness, necrotic center.Present for 2 weeks or so patient believes this is a recluse spider bite was seen at the urgent care center and initially prescribed as Bactrim which did not resolve and was prescribed doxycycline a 2nd time however patient did not see any improvement and presented to emergency room patient denies any fevers, rigors, generalized malaise, night sweats, body aches and pains, no nausea, no vomiting, no abdominal pain, no diarrhea. In emergency room the area was drained and cleaned up. Patient has been placed in observation for further evaluation management and treatment. XR wrist LT min 3V Ordering provider: Alicia Ferris PA-C History: . edema, erythema, wound . Comparison: October 13, 2020 FINDINGS: BONES: No acute fracture or dislocation. No definite scaphoid fracture. JOINT SPACES: Osteoarthritic changes of the first carpometacarpal joint. Widening of the distance between the scaphoid and lunate suggestive of subluxation. SOFT TISSUES: Normal. IMPRESSION: No acute osseous abnormality left wrist. Review of Systems Review of Systems: left wrist area of warmth tenderness redness necrotic center Constitutional: Constitutional: Denies chills, Denies fever(s), Denies malaise, Denies night sweats and Denies poor appetite Eyes: Eyes: Denies change in vision ENT: Denies dysphagia and Denies odynophagia Cardiovascular: Cardiovascular: Denies chest pain Respiratory: Respiratory: Denies chest congestion, Denies cough, Denies dyspnea and Denies wheezing Gastrointestinal: Gastrointestinal: Denies abdominal pain, Denies nausea and Denies vomiting Genitourinary: Genitourinary: Denies dysuria Musculoskeletal: Musculoskeletal: Reports other ( left wrist area of warmth redness tenderness necrotic center) Integumentary/Breasts: Skin/Breast: Reports erythema and Reports skin ulcer ( left wrist) Neurologic: Denies focal weakness and Denies Sensory deficit (Neuro) Psychiatric: Psychiatric: Reports no additional psychiatric complaints and Reports as per HPI Endocrine: Endocrine: Denies cold intolerance, Denies heat intolerance, Denies polyphagia, Denies polydipsia and Denies polyuria Hematologic/Lymphatic: Hematologic/Lymphatic: Reports no additional hematologic/lymphatic complaints and Reports as per HPI Allergic/Immunologic: Allergic/Immunologic: Reports no additional allergic/immunologic complaints and Reports as per HPI [facility] Past Medical History Medical History Cyst of left breast High blood pressure Surgical History Surgical History History of kidney surgery History of surgery on arm Family History Family History (Updated 05/24/24 @ 22:36 by Kimberly Gonsalez RN) Mother Dementia Hypertension Father Brain cancer Social History Social History Smoking packs per day: 1 Smoking cigarettes per day: 20.0 Smoking status: Current every day smoker Tobacco type: e-cigarettes/vaping Alcohol intake: never Substance use: never Substance use type: does not use Do You Feel Safe in your Home?: Yes Lack of Transportation: No Lack of Food: Never True Current Housing: I Have Housing Concerned About Future Housing: No Difficulty Paying Gas/Electric Bills: No Difficulty Paying for Meds: No Currently Unemployed: No Education: High School Diploma/GED Difficulty w/ Childcare or Family Care: No Spiritual care concerns: No Meds Home Medications and Allergie
[2024-05-24 22:25] VITALS: BMI 44.3
[2024-05-24 22:30] VITALS: BP 112/68; PULSE 77; RESP 20; TEMP 36.5; O2SAT 96
--- NOTE | 2024-05-24 22:31 | ADMGEN ---
This patient, Eve Lunsford, was admitted to 2 Medical Room 260-. Patient/family oriented to hospital policies and general routines including ID bracelet, bed and alarms, visiting hours, pain management, procedures, bathroom and other care routines, personal items, smoking policy, room service/diet, and visiting hours. Information on how to activate the Rapid Response Team has been discussed. Patient/Family are encouraged to report perceived risks to care and to ask questions if they do not understand what they are told or what they should do.
[2024-05-24 22:32] VITALS: BP 140/94; PULSE 92; RESP 18; TEMP 36.8; O2SAT 98
[2024-05-25] MEDS: VANCOMYCIN 1,250 MG/NS 250 ML 1,250 MG/250 ML BAG 166.67 MG IVPB ×2 (00:06→00:54)
[2024-05-25] MEDS: traMADol HCL (*CRX) 50 MG TABLET PO (00:54)
[2024-05-25 04:01] VITALS: BP 111/69; PULSE 74; RESP 20; TEMP 36.5; O2SAT 93
[2024-05-25 05:32] LABS: Estimated CRCL calculation 94 ml/min; Estimated Glomerular Filt Rate > 60
--- NOTE | 2024-05-25 07:57 | PM.IMPN ---
Progress Note: A&P Assessment and Plan (1) Cellulitis: Qualifiers: Laterality: left Site of cellulitis: extremity Site of cellulitis of extremity: upper extremity Qualified Code(s): L03.114 - Cellulitis of left upper limb Code(s): L03.90 - Cellulitis, unspecified Status: Acute Assessment and Plan: - Wrist XR: No acute osseous abnormality left wrist. - Wound culture obtained on 05/24: pending - Blood culture obtained on 05/24: pending - Antibiotics: Vancomycin (pharm consulted for dosing) and Rocephin - Monitor vital signs, I&Os, neuro status and patient is a fall risk - Monitor serum electrolytes, CBC, cultures, WBC and temp curve - Consulted wound care (2) High blood pressure: Code(s): I10 - Essential (primary) hypertension Status: Acute Assessment and Plan: Chronic, well controlled on home medications. - HCTZ 25 mg daily - Monitor (3) Tobacco dependence: Code(s): F17.200 - Nicotine dependence, unspecified, uncomplicated Status: Acute Assessment and Plan: Not requiring nicotine patch at this time. (4) BMI 40.0-44.9, adult: Code(s): Z68.41 - Body mass index [BMI] 40.0-44.9, adult Status: Acute Assessment and Plan: Encourage lifestyle changes and healthy diet. Time Spent With Patient Time with patient: 25 - 35 minutes Subjective Date/time seen: 05/25/24 07:57 Interval history: 58 year old female with past medical history of hypertension and tobacco dependence presents to the hospital for left wrist swelling and redness. Patient previously seen at the [facility] on 05/17 and started on Pen-VK, the redness improved however the swelling worsened and formed an abscess. She returned to the ED on 05/20 where the area was lanced. She was discharged on Bactrim and told to discontinue the Pen-VK. Since having the abscess drained she states that it continued to have a white watery pus like discharge. She had doxy added onto the regimen on 05/23 and was told to see wound care, but was unable to get in for several weeks and reported to the ED. In the ED she underwent a second I&D and a wound culture was collected. Patient is pleasant sitting up in her bed. She states that her left wrist is feeling much better since undergoing the second I&D in the ED. She continues to have a small amount of serosanguineous drainage but denies any pus at this time. She remains afebrile and denies tingling, numbness and pain to the left hand. Wound care has been consulted. Wound culture is pending. Patient remains on vancomycin and rocephin for cellulitis coverage. Review of Systems Review of Systems: All systems reviewed & are unremarkable except as noted in HPI and below Exam Narrative: AF HR 74 RR 20 SpO2 93 BP 111/69 General: female in no acute respiratory distress who is nontoxic appearing, sitting up in bed. HEENT: Normocephalic. Atraumatic. Extraocular movement intact. Sclera clear and anicteric. No facial asymmetry. Chest: Lungs are clear to auscultation bilaterally. No wheezes or crackles. CV: Heart was regular rate and rhythm. S1-S2. No murmurs, gallops, or rubs. Abd: Abdomen was soft. Nontender. Nondistended. Positive bowel sounds. No organomegaly or masses. Ext: Well healing wound to the left wrist with minimal serosanguineous drainage and undermining. Full ROM of left hand. 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 No clubbing, cyanosis, or edema. 2+ DP pulses bilaterally. Neuro: Patient is alert and oriented x4. Cranial nerves 2-12 are intact. Speech is clear. Psych: Normal mood and affect. Patient is pleasant and cooperative. Objective Data Vital Signs Vital Signs: Vital Signs - 24 hr 05/24/24 18:27 05/24/24 22:30 05/24/24 22:32 Temperature 97.6 F 97.7 F 98.2 F Pulse Rate 87 77 92 Respiratory Rate 16 20 18 Blood Pressure 138/92 H 112/68 140/94 H Pulse Oximetry 97 96 98 Oxygen Delivery Room Air 05/25/24 04:01 05/24/24 22:23 Temperature 97
[2024-05-25] MEDS: hydroCHLOROthiazide 25 MG TABLET PO (08:15)
[2024-05-25] MEDS: VANCOMYCIN 1,500 MG/NS 500 ML 1,500 MG/500 ML BAG 250 MG IVPB (12:28)
[2024-05-25 14:00] VITALS: BP 144/82; PULSE 68; RESP 16; TEMP 36.2; O2SAT 100
[2024-05-25 22:00] VITALS: BP 124/82; PULSE 81; RESP 16; TEMP 37.2; O2SAT 100
[2024-05-26] MEDS: ACETAMINOPHEN 500 MG TABLET 1000 MG PO (00:26)
[2024-05-26] MEDS: traMADol HCL (*CRX) 50 MG TABLET PO (00:27)
[2024-05-26] MEDS: VANCOMYCIN 1,500 MG/NS 500 ML 1,500 MG/500 ML BAG 250 MG IVPB (00:28)
[2024-05-26 05:17] LABS: Basophils Percent Auto 0.5 % (0.2-1.2); Eosinophils Absolute Auto 0.4 K/mm3 (0-0.3); Eosinophils Percent Auto 5.4 % (0-4.4); Hematocrit 41.9 % (37.0-47.0); Hemoglobin 13.1 g/dL (12.0-15.0); Immature Granulocyte Absolute 0.02 K/mm3 (0.00-0.031); Immature Granulocyte Percent A 0.3 % (0-0.5); Lymphocytes Percent Auto 34.8 % (18.3-44.2); Mean Corpuscular HGB Conc 31.3 g/dl (32-36); Mean Corpuscular Hemoglobin 30.4 pg (26-34); Mean Corpuscular Volume 97.2 fl (80-100); Mean Platelet Volume 9.7 fl (7.4-10.4); Monocytes Absolute Auto 0.7 K/mm3 (0.1-0.6); Monocytes Percent Auto 8.5 % (2.6-8.5); Neutrophils Absolute Auto 3.9 K/mm3 (1.3-6.7); Neutrophils Percent Auto 50.5 % (45.5-73.1); Platelet Count Result 228 k/mm3 (150-375); Red Blood Count 4.31 M/mm3 (4.2-5.4); Red Cell Distribution Width 12.3 % (11.5-14.5); White Blood Count 7.8 K/mm3 (4.5-10.0)
[2024-05-26 05:36] LABS: Alanine Aminotransferase 17 U/L (6-35); Albumin Level 3.8 g/dL (3.5-5.1); Alkaline Phosphatase 65 U/L (38-126); Anion Gap 5 mmol/L (4-12); Aspartate Amino Transferase 19 U/L (14-36); Bilirubin,Total 0.4 mg/dL (0.2-1.3); Blood Urea Nitrogen 17 mg/dL (7-17); Calcium 9.1 mg/dL (8.4-10.2); Carbon Dioxide 26 mmol/L (22-30); Chloride 108 mmol/L (98-107); Estimated CRCL calculation 83 ml/min; Estimated Glomerular Filt Rate > 60; Glucose 92 mg/dL (65-110); Potassium 4.3 mmol/L (3.4-5.0); Sodium 139 mmol/L (137-145)
[2024-05-26 06:00] VITALS: BP 121/77; PULSE 67; RESP 18; TEMP 36.6; O2SAT 98
--- NOTE | 2024-05-26 07:07 | PM.IMPN ---
Progress Note: A&P Assessment and Plan (1) Cellulitis: Qualifiers: Laterality: left Site of cellulitis: extremity Site of cellulitis of extremity: upper extremity Qualified Code(s): L03.114 - Cellulitis of left upper limb Code(s): L03.90 - Cellulitis, unspecified Status: Acute Assessment and Plan: - Wrist XR: No acute osseous abnormality left wrist. - Wound culture obtained on 05/24: few gram positive cocci concerning for staph - Blood culture obtained on 05/24: pending - Antibiotics: Vancomycin (pharm consulted for dosing) and Rocephin - Monitor vital signs, I&Os, neuro status and patient is a fall risk - Monitor serum electrolytes, CBC, cultures, WBC and temp curve - Consulted wound care (2) High blood pressure: Code(s): I10 - Essential (primary) hypertension Status: Acute Assessment and Plan: Chronic, well controlled on home medications. - HCTZ 25 mg daily - Monitor (3) Tobacco dependence: Code(s): F17.200 - Nicotine dependence, unspecified, uncomplicated Status: Acute Assessment and Plan: Not requiring nicotine patch at this time. (4) BMI 40.0-44.9, adult: Code(s): Z68.41 - Body mass index [BMI] 40.0-44.9, adult Status: Acute Assessment and Plan: Encourage lifestyle changes and healthy diet. Time Spent With Patient Time with patient: 25 - 35 minutes Subjective Date/time seen: 05/26/24 07:07 Interval history: 58 year old female with past medical history of hypertension and tobacco dependence presents to the hospital for left wrist swelling and redness. Patient previously seen at the [facility] on 05/17 and started on Pen-VK, the redness improved however the swelling worsened and formed an abscess. She returned to the ED on 05/20 where the area was lanced. She was discharged on Bactrim and told to discontinue the Pen-VK. Since having the abscess drained she states that it continued to have a white watery pus like discharge. She had doxy added onto the regimen on 05/23 and was told to see wound care, but was unable to get in for several weeks and reported to the ED. In the ED she underwent a second I&D and a wound culture was collected. Patient is pleasant sitting up comfortably in bed. She has no complaints at this time. She states that her wound has had last discharge since the admission. Her wound culture is growing Gram-positive cocci concerning for Staph. She remains on vancomycin and Rocephin. She remains inpatient pending wound culture results. Review of Systems Review of Systems: All systems reviewed & are unremarkable except as noted in HPI and below Exam Narrative: AF HR 67 RR 18 SPO2 98 BP 121/77 General: female in no acute respiratory distress who is nontoxic appearing, sitting up in bed. Chest: Lungs are clear to auscultation bilaterally. No wheezes or crackles. CV: Heart was regular rate and rhythm. S1-S2. No murmurs, gallops, or rubs. Ext: Well healing wound to the left wrist with minimal serosanguineous drainage and undermining. Full ROM of left hand. 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 No clubbing, cyanosis, or edema. 2+ DP pulses bilaterally. Neuro: Speech is clear. Psych: Normal mood and affect. Patient is pleasant and cooperative. Objective Data Vital Signs Vital Signs: Vital Signs - 24 hr 05/25/24 08:11 05/25/24 14:00 05/25/24 22:00 Temperature 97.1 F L 98.9 F Pulse Rate 68 81 Respiratory Rate 16 16 Blood Pressure 144/82 H 124/82 Pulse Oximetry 100 100 Oxygen Delivery Room Air 05/25/24 20:00 05/26/24 06:00 Temperature 97.9 F Pulse Rate 67 Respiratory Rate 18 Blood Pressure 121/77 Pulse Oximetry 98 Oxygen Delivery Room Air Intake/Output Intake/Output: Intake & Output 05/23/24 05/24/24 05/25/24 05/26/24 23:59 23:59 23:59 23:59 Intake Total 1880 500 Output Total 1650 1400 Balance 230 -900 Meds/Results Medications: Active Medications Generic Name Do
[2024-05-26] MEDS: ENOXAPARIN 40 MG/0.4 ML SYRINGE SUB-Q (08:12)
[2024-05-26] MEDS: hydroCHLOROthiazide 25 MG TABLET PO (08:12)
[2024-05-26] MEDS: GABAPENTIN 300 MG CAPSULE PO (08:14)
[2024-05-26] MEDS: VANCOMYCIN 1,750 MG/NS 500 ML 1,750 MG/500 ML BAG 250 MG IVPB (13:08)
[2024-05-26 14:00] VITALS: BP 121/75; PULSE 64; RESP 18; TEMP 36.3; O2SAT 96
[2024-05-26 21:41] VITALS: BP 142/81; PULSE 66; RESP 16; TEMP 36.6; O2SAT 95
[2024-05-27] MEDS: VANCOMYCIN 1,750 MG/NS 500 ML 1,750 MG/500 ML BAG 250 MG IVPB ×2 (00:22→13:01)
[2024-05-27] MEDS: ACETAMINOPHEN 500 MG TABLET 1000 MG PO ×2 (00:22→08:49)
[2024-05-27] MEDS: traMADol HCL (*CRX) 50 MG TABLET PO (00:23)
[2024-05-27 06:00] VITALS: BP 143/89; PULSE 77; RESP 18; TEMP 36.6; O2SAT 96
[2024-05-27 06:27] LABS: Basophils Percent Auto 0.5 % (0.2-1.2); Eosinophils Absolute Auto 0.3 K/mm3 (0-0.3); Eosinophils Percent Auto 4.2 % (0-4.4); Hematocrit 42.2 % (37.0-47.0); Hemoglobin 13.7 g/dL (12.0-15.0); Immature Granulocyte Absolute 0.02 K/mm3 (0.00-0.031); Immature Granulocyte Percent A 0.2 % (0-0.5); Lymphocytes Absolute Auto 2.38 K/mm3 (0.9-3.2); Lymphocytes Percent Auto 29.7 % (18.3-44.2); Mean Corpuscular HGB Conc 32.5 g/dl (32-36); Mean Corpuscular Hemoglobin 30.8 pg (26-34); Mean Corpuscular Volume 94.8 fl (80-100); Mean Platelet Volume 9.6 fl (7.4-10.4); Monocytes Absolute Auto 0.6 K/mm3 (0.1-0.6); Monocytes Percent Auto 7.9 % (2.6-8.5); Neutrophils Absolute Auto 4.6 K/mm3 (1.3-6.7); Neutrophils Percent Auto 57.5 % (45.5-73.1); Platelet Count Result 238 k/mm3 (150-375); Red Blood Count 4.45 M/mm3 (4.2-5.4); Red Cell Distribution Width 12.5 % (11.5-14.5)
[2024-05-27 06:38] LABS: Alanine Aminotransferase 17 U/L (6-35); Albumin Level 4.1 g/dL (3.5-5.1); Alkaline Phosphatase 67 U/L (38-126); Anion Gap 7 mmol/L (4-12); Aspartate Amino Transferase 18 U/L (14-36); Bilirubin,Total 0.4 mg/dL (0.2-1.3); Blood Urea Nitrogen 17 mg/dL (7-17); Calcium 9.3 mg/dL (8.4-10.2); Carbon Dioxide 27 mmol/L (22-30); Chloride 107 mmol/L (98-107); Estimated CRCL calculation 94 ml/min; Estimated Glomerular Filt Rate > 60; Glucose 92 mg/dL (65-110); Magnesium 2.1 mg/dL (1.6-2.3); Potassium 3.9 mmol/L (3.4-5.0); Sodium 141 mmol/L (137-145)
[2024-05-27] MEDS: hydroCHLOROthiazide 25 MG TABLET PO (08:34)
[2024-05-27] MEDS: GABAPENTIN 300 MG CAPSULE PO (08:50)
--- NOTE | 2024-05-27 13:34 | PC.NURSE ---
Addendum entered by Leisa De La O RN 05/27/24 17:33: UPDATE: 1720 medication not covered/has an approval process.Spoke with MD and she is calling in something else for the patient. Patient made aware. Original Note: Patient in bed for morning assessment. She is able to move about the room without difficulty. Her pain complaints is of her knees when she is walking. Wound RN to see patient today. Patient hopes to be discharged today.
--- NOTE | 2024-05-27 13:42 | PM.DS ---
DS: Admitting Diagnosis Discharge Date 05/27/24 Admitting Diagnosis cellulitis high blood pressure tobacco dependence BMI 40.0-44.9 DS: Discharge Diagnosis Discharge Diagnosis (1) Cellulitis: Qualifiers: Laterality: left Site of cellulitis: extremity Site of cellulitis of extremity: upper extremity Qualified Code(s): L03.114 - Cellulitis of left upper limb Code(s): L03.90 - Cellulitis, unspecified Status: Acute (2) High blood pressure: Code(s): I10 - Essential (primary) hypertension Status: Acute (3) Tobacco dependence: Code(s): F17.200 - Nicotine dependence, unspecified, uncomplicated Status: Acute (4) BMI 40.0-44.9, adult: Code(s): Z68.41 - Body mass index [BMI] 40.0-44.9, adult Status: Acute DS: Summary Hospital Course Reason for hospitalization: cellulitis high blood pressure tobacco dependence BMI 40.0-44.9 Hospital Course: 58 year old female with past medical history of hypertension and tobacco dependence presents to the hospital for left wrist swelling and redness. Patient previously seen at the [facility] on 05/17 and started on Pen-VK, the redness improved however the swelling worsened and formed an abscess. She returned to the ED on 05/20 where the area was lanced. She was discharged on Bactrim and told to discontinue the Pen-VK. Since having the abscess drained she states that it continued to have a white watery pus like discharge. She had doxy added onto the regimen on 05/23 and was told to see wound care, but was unable to get in for several weeks and reported to the ED. In the ED she underwent a second I&D and a wound culture was collected. Patient was started on vancomycin and rocephin at that time. The wound culture was MRSA positive. Prior to discharge discussed patients case with ID pharmacy. Patient to complete her antibiotic course with linezolid. Patient discharged home in stable condition. She is to complete her antibiotics as prescribed and follow up with her PCP in 1 week. Time spent discussing smoking cessation with patient: 3 to 10 minutes Status at Discharge Functional status at discharge: independent ambulation Time Spent with Patient Time attestation: Total time spent providing and/or coordinating discharge services: Time spent: Greater than 30 minutes Exam Narrative: AF HR 77 RR 14 SpO2 99 BP 150/87 General: female in no acute respiratory distress who is nontoxic appearing, sitting up in bed. Chest: Lungs are clear to auscultation bilaterally. No wheezes or crackles. CV: Heart was regular rate and rhythm. S1-S2. No murmurs, gallops, or rubs. Ext: Well healing wound to the left wrist with minimal serosanguineous drainage and undermining. Full ROM of left hand. 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 No clubbing, cyanosis, or edema. Neuro: Speech is clear. Psych: Normal mood and affect. Patient is pleasant and cooperative. DS: Data Data Completed and Pending Completed studies during hospitalization: Wrist XR Labs on day of discharge: Labs from last 24 hours 05/27/24 06:13 WBC 8.0 RBC 4.45 Hgb 13.7 Hct 42.2 MCV 94.8 MCH 30.8 MCHC 32.5 RDW 12.5 Plt Count 238 MPV 9.6 Immature Gran % (Auto) 0.2 Neut % (Auto) 57.5 Lymph % (Auto) 29.7 [place] % (Auto) 7.9 Eos % (Auto) 4.2 Baso % (Auto) 0.5 Lymph # (Auto) 2.38 [place] # (Auto) 0.6 Eos # (Auto) 0.3 Baso # (Auto) 0.0 Abs Immat Gran (auto) 0.02 Absolute Neuts (auto) 4.6 Absolute Nucleated RBC 0.000 Nucleated RBC % 0.0 Sodium 141 Potassium 3.9 Chloride 107 Carbon Dioxide 27 Anion Gap 7 BUN 17 Creatinine 0.70 Estim Creat Clear Calc 94 Estimated GFR > 60 Glucose 92 Calcium 9.3 Magnesium 2.1 Total Bilirubin 0.4 AST 18 ALT 17 Alkaline Phosphatase 67 Total Protein 7.0 Albumin 4.1 Preliminary micro results at discharge 05/24/24 20:10 Blood Culture - Preliminary Blood 05/24/24 20:10 Blood Culture - Preliminary Blood
[2024-05-27 14:00] VITALS: BP 150/87; PULSE 77; RESP 14; TEMP 36.8; O2SAT 99
[2024-05-27] MEDS: GENTAMICIN SULFATE 0.1% OINT 15 GM TUBE 1 APPLIC TOPICAL (15:19)
== END 2024-05-27 17:30 | disposition home or self-care (01) | DRG 383 ==
LOC: ANHED 22:01 → ANH2MED 22:15
PROVIDERS: Student in an Organized Health Care Education/Training Program; Admitting Provider Internal Medicine; Emergency Provider Physician Assistant; PCP Nurse Practitioner; Visit Provider Internal Medicine
DX: L02.414 Cutaneous abscess of left upper limb (principal); L03.114 Cellulitis of left upper limb; I10 Essential (primary) hypertension; B95.62 Methicillin resistant Staphylococcus aureus infection as the cause of diseases classified elsewhere; F17.210 Nicotine dependence, cigarettes, uncomplicated; E66.9 Obesity, unspecified; Z68.41 Body mass index [BMI] 40.0-44.9, adult
CPT/HCPCS: 36415; 73110; 80048; 80053; 80202; 82565; 83605; 83735; 85025; 85652; 86140; 87040; 87070; 87081; 87181; 87205; 99285; A9270; G0378; G0379; J0696; J1650; J3370

== ENCOUNTER 2024-10-18 12:18 | Emergency (ER) | payer OTHER, SELFPAY ==
--- NOTE | 2024-10-18 13:14 | ED.EXTPRO ---
HPI - Extremity Problem General Chief complaint: Extremity Problem,Nontraumatic Stated complaint: Right Knee Pain Time Seen by Provider: 10/18/24 13:14 Source: patient, RN notes reviewed and old records reviewed Mode of arrival: ambulatory Limitations: no limitations History of Present Illness HPI Narrative: r knee acute on chronic knee Related Data Home Medications Medication Instructions Recorded Confirmed hydrochlorothiazide 25 mg tablet 25 mg PO DAILY 07/03/23 05/24/24 meloxicam 15 mg tablet 15 mg PO DAILY 07/03/23 05/24/24 cholecalciferol (vitamin D3) 1,250 1,250 mcg PO WEEKLY 11/03/23 05/24/24 mcg (50,000 unit) tablet loratadine 10 mg tablet 10 mg PO PRN PRN allergies 11/03/23 05/24/24 gabapentin 300 mg capsule 300 mg PO PRN PRN nerve pain 05/24/24 05/24/24 tramadol 50 mg tablet 50 mg PO BID PRN Pain (Scale Score 05/24/24 05/24/24 4-6) Allergies Allergy/AdvReac Type Severity Reaction Status Date / Time No Known Allergies Allergy Verified 05/24/24 18:32 Review of Systems Review of Systems: All systems reviewed & are unremarkable except as noted in HPI and below Constitutional: Constitutional: Reports no additional constitutional complaints ENT: Reports system reviewed and no additional complaints, except as documented Cardiovascular: Cardiovascular: Reports no additional cardiovascular complaints Respiratory: Respiratory: Reports no additional respiratory complaints Gastrointestinal: Gastrointestinal: Reports no additional gastrointestinal complaints [facility] Past Medical History Medical History (Updated 10/18/24 @ 13:27 by Jessica Nugent APRN) Cyst of left breast High blood pressure Surgical History Surgical History History of kidney surgery History of surgery on arm Family History Family History (Updated 05/24/24 @ 22:36 by Kimberly Gonsalez RN) Mother Dementia Hypertension Father Brain cancer Social History Social History Smoking packs per day: 1 Smoking cigarettes per day: 20.0 Smoking status: Current every day smoker Tobacco type: e-cigarettes/vaping Alcohol intake: never Substance use: never Substance use type: does not use Do You Feel Safe in your Home?: Yes Lack of Transportation: No Lack of Food: Never True Current Housing: I Have Housing Concerned About Future Housing: No Difficulty Paying Gas/Electric Bills: No Difficulty Paying for Meds: No Currently Unemployed: No Education: High School Diploma/GED Difficulty w/ Childcare or Family Care: No Spiritual care concerns: No Comments At the time of my signature, I reviewed and agree with the nursing past medical, surgical, social, and family history. There is no relevant family history pertinent to the patient complaint. Exam Const: General: cooperative, no acute distress, alert and awake Orientation/consciousness: oriented to person, oriented to place and oriented to time HENMT: Head: normal to inspection Resp: Effort & Inspection: normal respiratory effort and able to speak in complete sentences Auscultation: clear to auscultation bilaterally, no crackles, no rales, no rhonchi and no wheezes Cardio: Palpation: normal PMI Rate: regular rate Rhythm: regular rhythm Heart sounds: S1 normal heart sound present and S2 normal heart sound present Neuro: General: oriented to person, oriented to place and oriented to time Cranial nerves: Yes CN's II-XII intact bilaterally Psych: Appearance: grossly normal Thought process: Normal thought process present Insight: Good insight present (Psych) Judgement: Good judgement present (Psych) Course Course Level of Care: Express Care Visit Vital Signs Vital signs: Reviewed Discharge Plan Discharge Clinical Impression: Knee pain Patient Disposition: Home, Self-Care Condition: Stable Instructions: Antibiotic Form, P.R.I.C.E. Treatment (ED) Additional Instructions: Take medication as prescribed. Follow with primary care provider. Emergency department for new or worse symptoms Patient Language: Latvian Prescriptions: New prednisone 50 mg tablet 50 mg PO DAILY Qty: 5 0RF No Action meloxicam 15 mg tablet 15 mg PO DAILY hydrochlorothiazide 25 mg tablet 25 mg PO DAILY loratadine 10 mg tablet 10 mg PO PRN PRN (Reason: allergies) cholecalciferol (vitamin D3) 1,250 mcg (50,000 unit) Tablet 1,250 mcg PO WEEKLY Rx Instructions: monday night tramadol 50 mg tablet 50 mg PO BID PRN (Reason: Pain (Scale Score 4-6)) Hold Instructions: Resume on 06/01/24. gabapentin 300 mg capsule 300 mg PO PRN PRN (Reason: nerve pain) clindamycin HCl [Cleocin HCl] 150 mg capsule 150 mg PO Q6H Qty: 16 0RF clindamycin HCl 300 mg capsule 300 mg PO Q6H 4 Days Qty: 16 0RF Follow-up/Referrals: Jaziel,MAGO Nelson [Primary Care Provider] - 1 Week Stand Alone Forms: Work/School Release IP Time of Disposition: 13:28
== END 2024-10-18 13:35 | disposition home or self-care (01) ==
PROVIDERS: Emergency Provider Nurse Practitioner Family; PCP Nurse Practitioner
DX: M25.561 Pain in right knee (principal); F17.290 Nicotine dependence, other tobacco product, uncomplicated
CPT/HCPCS: 99213; G0463